=== PATIENT | male | born 1950 | race African-American/Black ===

== ENCOUNTER 2021-02-06 10:59 | Emergency (ER) | payer BC, OTHER ==
[2021-02-06 11:38] VITALS: BMI 24.4
[2021-02-06] MEDS ORDERED: BAMLANIVIMAB 700 MG, ETESEVIMAB 1,400 MG in SODIUM CHLORIDE 250 ML IVPB ONE (11:49)
[2021-02-06] MEDS ORDERED: ACETAMINOPHEN 325 MG TABLET (FP) PO ONE (12:03)
[2021-02-06] MEDS ORDERED: ACETAMINOPHEN 325 MG TABLET (FP) ONE (12:57)
[2021-02-06 14:33] LABS: BASO % 0.4 % (0-2.0); HEMATOCRIT 44.1 % (35.4-49); LYMPH % 11.9 % (8-40); MEAN CELL VOLUME 94.3 fl (80-96); MEAN PLT VOLUME 9.4 fl (7.5-11.1); MONO % 8.4 % (3.8-10.2); NEUT % 79.3 % (42.8-82.8); PLATELET COUNT 241 K/MM3 (134-434); RBC 4.68 M/mm3 (4.00-5.60); RDW 13.4 % (11.9-15.9); WHITE BLOOD COUNT 6.2 K/mm3 (4.0-10.0)
[2021-02-06 14:50] LABS: CHLORIDE 98 mmol/L (98-107); SODIUM 132 mmol/L (136-145)
[2021-02-06 14:52] LABS: CALCIUM 8.6 mg/dL (8.5-10.1)
[2021-02-06 14:53] LABS: ALBUMIN 3.1 g/dl (3.4-5.0); BLOOD UREA NITROGEN 13.4 mg/dL (7-18); CO2 28 mmol/L (21-32); GLUCOSE,RANDOM 88 mg/dL (74-106)
[2021-02-06 14:56] LABS: SGOT/AST 125 U/L (15-37)
[2021-02-06 14:57] LABS: BILIRUBIN,TOTAL 0.6 mg/dL (0.2-1); TOT PROT 8.6 g/dl (6.4-8.2)
[2021-02-06 14:59] LABS: ALK PHOS 79 U/L (45-117); ANION GAP 6 MMOL/L (8-16); POTASSIUM 7.1 mmol/L (3.5-5.1); SGPT/ALT 55 U/L (13-61)
[2021-02-06] MEDS ORDERED: AZITHROMYCIN 500 MG TABLET PO ONE (15:47)
[2021-02-06] MEDS ORDERED: AZITHROMYCIN 250 MG TABLET ONE (16:09)
[2021-02-06 17:20] VITALS: BP 135/77; PULSE 73; TEMP 98.2
== END 2021-02-06 17:31 | disposition home or self-care (01) ==
LOC: JER 10:59
DX: U07.1 COVID-19 (principal)
CPT/HCPCS: 36415; 71046-TC-FY; 80053; 84132; 85025; 99284-25; M0239; Q0239; Q0245